=== PATIENT | female | born 1975 | race Caucasian/White ===

== ENCOUNTER 2017-02-17 17:17 | Emergency (ER) | payer BC ==
[2017-02-17] MEDS ORDERED: NS 1,000 ML IV ONE ×2 (17:34→18:59)
[2017-02-17] MEDS ORDERED: ONDANSETRON 4 MG/2 ML VIAL IVP ONE (17:34)
[2017-02-17 17:52] LABS: % IMMATURE GRANULYOCYTES 0.3 % (0.0-1.1); ABSOLUTE IMMATURE GRANULOCYTES 0.02 10^3/uL (0.00-0.10); ADD DIFF? NO; ADD MORPH? NO; ADD SCAN? NO; ATYPICAL LYMPHOCYTE FLAG 60 (0-99); FRAGMENT RBC FLAG 0 (0-99); HEMATOCRIT 42.7 % (38.0-47.0); HEMOGLOBIN 14.7 g/dL (12.6-16.3); LEFT SHIFT FLG 0 (0-99); LIPEMIA HEMOLYSIS FLAG 90 (0-99); MEAN CELL HEMOGLOBIN 31.4 pg (27.9-34.1); MEAN CELL HEMOGLOBIN CONCENTR. 34.4 g/dL (32.4-36.7); MEAN CELL VOLUME 91.2 fL (81.5-99.8); MEAN PLATELET VOLUME 8.7 fL (8.7-11.7); PLATELET CLUMPS FLAG 10 (0-99); PLATELET COUNT 399 10^3/uL (150-400); RED BLOOD CELL COUNT 4.68 10^6/uL (4.18-5.33)
[2017-02-17] MEDS ORDERED: METOCLOPRAMIDE 10 MG/2 ML VIAL IVP ONE (17:52)
[2017-02-17] MEDS ORDERED: PANTOPRAZOLE SODIUM 40 MG VIAL IVP ONE (17:52)
--- NOTE | 2017-02-17 17:52 | EDPHY ---
H & P Stated Complaint: Throwing up since 02/13/17. One episode of diarrhea Source: Patient, Family Exam Limitations: No limitations - Personal History LMP (Females 10-55): Now Current Tetanus Diphtheria and Acellular Pertussis (TDAP): Yes - Medical/Surgical History Hx Asthma: No Hx Chronic Respiratory Disease: No Hx Diabetes: No Hx Cardiac Disease: No Hx Renal Disease: No Hx Cirrhosis: No Hx Alcoholism: No Hx HIV/AIDS: No Hx Splenectomy or Spleen Trauma: No Other PMH: Right knee surgery. HTN. - Social History Smoking Status: Never smoked HPI/ROS: CHIEF COMPLAINT: Nausea vomiting HISTORY OF PRESENT ILLNESS: Patient complains of vomiting that started Monday morning. This has constant duration. Steadily worsening. Multiple episodes per day with dry heaving when she is NPO. She has had difficulty keeping any liquids or solids down. No bloody emesis. Couple episodes of diarrhea. No constipation. No fever or chills. No abdominal pain other than the cramping associated with dry heaving. No chest pain or shortness of breath. No cough or illness. No recent travel. No other known sick contacts. No other associated complaints or modifying factors. Does have a history of hypertension that she takes triamterene for. She is not taking over the past 2 days. 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 Uvula midline. No erythema or edema. Neck: Normal inspection, supple, non-tender. Trachea midline. Respiratory: Lungs are clear to auscultation Cardiovascular: Regular rate and rhythm. No murmur. Pulses intact distally. Gastrointestinal: Abdomen is soft and nontender. No tympany. No rigidity. No distention. Non-acute abdomen. Neurological: A&O, nonfocal, normal gait Skin: Warm and dry, no rash. Normal turgor. No petechiae or purpura. Extremities: Nontender, no pedal edema Psychiatric: Mood and affect normal DIFFERENTIAL DIAGNOSES: Including but not limited to viral gastroenteritis, dehydration, electrolyte disturbance, intractable vomiting, gastritis, enteritis, colitis, acute kidney injury MDM: 5:50 p.m. Four days history of vomiting. This is intolerance of liquid and solid. Vital signs are stable. Abdominal examination is benign. She is not actively vomiting at time my examination. I have ordered IV fluid, Zofran, Reglan and Benadryl. She is in no acute distress and resting comfortably at this time. 6:15 p.m. CBC and chemistry are unremarkable for any significant abnormalities. Continue with IV fluid resuscitation. 7:10 p.m. I have re-evaluated the patient. She is resting comfortably, feeling significantly better. No longer nauseated. No vomiting since arrival. Vital signs remained stable. Labs are all within normal limits. I suspect that this is a viral gastroenteritis, and that this will be self-limiting. No indication for imaging at this time. No indication for antibiotics. Discharged home with 2 forms of promethazine as she already has Zofran. She is comfortable with this plan. She will be discharged home stable condition with instructions to return here for or return of vomiting, fever or any abdominal pain. ED Precautions: Worsening pain. Fever. Bloody stools. Bloody emesis. Constipation or diarrhea. SUPERVISION: This patient was independently evaluated without direct examination by the attending physician. Case was discussed with attending physician. (Rafael Meeks) Constitutional: Initial Vital Signs Temperature (C) 36.6 C 02/17/17 17:27 Heart Rate 80 02/17/17 17:27 Respiratory Rate 16 02/17/17 17:27 Blood Pressure 125/82 H 02/17/17 17:27 O2 Sat (%) 98 02/17/17 17:27 O2 Delivery Mode Room Air Allergies/Adverse Reactions: acetaminophen [From Vicodin] Allergy (Severe, Verified 09/12/10 15:40) hydrocodone bitartrate [From Vicodin] Allergy (Severe, Verified 09/12/10 15:40) Home Medications: Medication Instructions Recorded Control Pill 09/12/10 Promethazine HCl [Phenergan 25mg 25 mg PO Q8 PRN #12 tab 02/17/17 (*)] Promethazine HCl [Phenergan] 25 mg RC Q8 PRN #12 supp.rect 02/17/17 Triamterene-Hctz 37.5-25 mg Cp 02/17/17 Medical Decision Making ED Course/Re-evaluation: I did not see this patient while she was in the emergency department. However her care was discussed with the PA while the patient was in the department. I agree with treatment plan and management (Milan Yates) - Data Points Laboratory Results: Laboratory Results 02/17/17 17:45 02/17/17 17:45 02/17/17 02/17/17 02/17/17 17:45 17:45 17:45 WBC 7.40 10^3/uL 10^3/uL (3.80-9.50) RBC 4.68 10^6/uL 10^6/uL (4.18-5.33) Hgb 14.7 g/dL g/dL (12.6-16.3) Hct 42.7 % % (38.0-47.0) MCV 91.2 fL fL (81.5-99.8) MCH 31.4 pg pg (27.9-34.1) MCHC 34.4 g/dL g/dL (32.4-36.7) RDW 12.0 % % (11.5-15.2) Plt Count 399 10^3/uL 10^3/uL (150-400) MPV 8.7 fL fL (8.7-11.7) Neut % (Auto) 44.7 % % (39.3-74.2) Lymph % (Auto) 42.6 % % (15.0-45.0) [place] % (Auto) 7.3 % % (4.5-13.0) Eos % (Auto) 4.7 % % (0.6-7.6) Baso % (Auto) 0.4 % % (0.3-1.7) Nucleat RBC Rel Count 0.0 % % (0.0-0.2) Absolute Neuts (auto) 3.31 10^3/uL 10^3/uL (1.70-6.50) Absolute Lymphs (auto) 3.15 10^3/uL H 10^3/uL (1.00-3.00) Absolute Monos (auto) 0.54 10^3/uL 10^3/uL (0.30-0.80) Absolute Eos (auto) 0.35 10^3/uL 10^3/uL (0.03-0.40) Absolute Basos (auto) 0.03 10^3/uL 10^3/uL (0.02-0.10) Absolute Nucleated RBC 0.00 10^3/uL 10^3/uL (0-0.01) Immature Gran % 0.3 % % (0.0-1.1) Immature Gran # 0.02 10^3/uL 10^3/uL (0.00-0.10) Sodium 135 mEq/L mEq/L (134-144) Potassium 3.4 mEq/L L mEq/L (3.5-5.2) Chloride 101 mEq/L mEq/L (97-110) Carbon Dioxide 25 mEq/l mEq/l (22-31) Anion Gap 9 mEq/L mEq/L (8-16) BUN 10 mg/dL mg/dL (7-23) Creatinine 0.9 mg/dL mg/dL (0.6-1.0) Estimated GFR > 60 Glucose 88 mg/dL mg/dL (70-100) Calcium 8.4 mg/dL L mg/dL (8.5-10.4) Total Bilirubin 0.6 mg/dL mg/dL (0.1-1.4) Conjugated Bilirubin 0.4 mg/dL mg/dL (0.0-0.5) Unconjugated Bilirubin 0.2 mg/dL mg/dL (0.0-1.1) AST 40 IU/L IU/L (14-46) ALT 50 IU/L IU/L (9-52) Alkaline Phosphatase 42 IU/L IU/L (38-126) Total Protein 6.3 g/dL g/dL (6.3-8.2) Albumin 3.9 g/dL g/dL (3.5-5.0) Lipase 154.0 IU/L IU/L (23-300) Beta HCG, Qual NEGATIVE Urine Color Urine Appearance Urine pH Ur Specific [place] Urine Protein Urine Ketones Urine Blood Urine Nitrate Urine Bilirubin Urine Urobilinogen Ur Leukocyte Esterase Urine RBC Urine WBC Ur Epithelial Cells Urine Glucose 02/17/17 17:34 WBC RBC Hgb Hct MCV MCH MCHC RDW Plt Count MPV Neut % (Auto) Lymph % (Auto) [place] % (Auto) Eos % (Auto) Baso % (Auto) Nucleat RBC Rel Count Absolute Neuts (auto) Absolute Lymphs (auto) Absolute Monos (auto) Absolute Eos (auto) Absolute Basos (auto) Absolute Nucleated RBC Immature Gran % Immature Gran # Sodium Potassium Chloride Carbon Dioxide Anion Gap BUN Creatinine Estimated GFR Glucose Calcium Total Bilirubin Conjugated Bilirubin Unconjugated Bilirubin AST ALT Alkaline Phosphatase Total Protein Albumin Lipase Beta HCG, Qual Urine Color PALE YELLOW Urine Appearance CLEAR Urine pH 7.0 (5.0-7.5) Ur Specific [place] 1.005 (1.002-1.030) Urine Protein NEGATIVE (NEGATIVE) Urine Ketones NEGATIVE (NEGATIVE) Urine Blood NEGATIVE (NEGATIVE) Urine Nitrate NEGATIVE (NEGATIVE) Urine Bilirubin NEGATIVE (NEGATIVE) Urine Urobilinogen NEGATIVE EU EU (0.2-1.0) Ur Leukocyte Esterase NEGATIVE (NEGATIVE) Urine RBC 1-3 /hpf /hpf (0-3) Urine WBC 1-3 /hpf /hpf (0-3) Ur Epithelial Cells NONE SEEN /lpf /lpf (NONE-1+) Urine Glucose NEGATIVE (NEGATIVE) Medications Given: Discontinued Medications Diphenhydramine HCl (Benadryl Injection) 25 mg IVP EDNOW ONE Stop: 02/17/17 17:53 Last Admin: 02/17/17 18:05 Dose: 25 mg Sodium Chloride (Ns) 1,000 mls @ 0 mls/hr IV ONCE ONE; Wide Open PRN Reason: Protocol Stop: 02/17/17 17:35 Last Admin: 02/17/17 17:50 Dose: 1,000 mls Sodium Chloride (Ns) 1,000 mls @ 0 mls/hr IV ONCE ONE; Wide Open PRN Reason: Protocol Stop: 02/17/17 19:00 Last Admin: 02/17/17 19:15 Dose: 1,000 mls Metoclopramide HCl (Reglan Injection) 10 mg IVP EDNOW ONE Stop: 02/17/17 17:53 Last Admin: 02/17/17 18:05 Dose: 10 mg Ondansetron HCl (Zofran) 4 mg IVP EDNOW ONE Stop: 02/17/17 17:35 Last Admin: 02/17/17 17:50 Dose: 4 mg Pantoprazole Sodium (Protonix) 40 mg IVP EDNOW ONE Stop: 02/17/17 17:53 Last Admin: 02/17/17 18:08 Dose: 40 mg Promethazine HCl (Phenergan) 12.5 mg IVP EDNOW ONE Stop: 02/17/17 19:31 Last Admin: 02/17/17 19:30 Dose: 12.5 mg Promethazine HCl (Phenergan 25 Mg Prepack #4) 1 btl TAKEHOME EDNOW ONE Stop: 02/17/17 19:46 Last Admin: 02/17/17 20:08 Dose: 1 btl Departure - Departure Disposition: Home, Routine, Self-Care Clinical Impression: Nausea & vomiting Qualifiers: Vomiting type: unspecified Vomiting Intractability: non-intractable Qualified Code(s): R11.2 - Nausea with vomiting, unspecified Condition: Good Instructions: Promethazine (By mouth), Acute Nausea and Vomiting (ED) Additional Instructions: 1. Zofran ODT as prescribed as needed 2. Promethazine p.o. as prescribed as needed or OK are as prescribed as needed 3. Follow up with primary care physician or return to the emergency department for worsening symptoms as discussed Referrals: Ayaz Cortes MD [Primary Care Provider] - As per Instructions Prescriptions: Promethazine HCl [Phenergan] 25 mg RC Q8 PRN #12 supp.rect PRN Reason: Nausea/Vomiting, Can'T Take Po Promethazine HCl [Phenergan 25mg (*)] 25 mg PO Q8 PRN #12 tab PRN Reason: Nausea/Vomiting, Use 1st
[2017-02-17 18:14] LABS: ALANINE AMINOTRANSFERASE 50 IU/L (9-52); ALBUMIN 3.9 g/dL (3.5-5.0); ALKALINE PHOSPHATASE 42 IU/L (38-126); ANION GAP 9 mEq/L (8-16); ASPARTATE AMINOTRANSFERASE 40 IU/L (14-46); BILIRUBIN,TOTAL 0.6 mg/dL (0.1-1.4); BILIRUBIN-CONJUGATED 0.4 mg/dL (0.0-0.5); BILIRUBIN-UNCONJUGATED 0.2 mg/dL (0.0-1.1); CALCIUM 8.4 mg/dL (8.5-10.4); CARBON DIOXIDE 25 mEq/l (22-31); CHLORIDE 101 mEq/L (97-110); CREATININE 0.9 mg/dL (0.6-1.0); GLOMERULAR FILTRATION RATE > 60; GLUCOSE 88 mg/dL (70-100); POTASSIUM 3.4 mEq/L (3.5-5.2); SODIUM 135 mEq/L (134-144); TOTAL PROTEIN 6.3 g/dL (6.3-8.2)
[2017-02-17 19:06] LABS: COLOR PALE YELLOW; LEUKOCYTE ESTERASE,URINE NEGATIVE (NEGATIVE); NITRITE,URINE NEGATIVE (NEGATIVE)
[2017-02-17] MEDS ORDERED: PROMETHAZINE HCL 25 MG/ML INJ ONE (19:25)
[2017-02-17] MEDS ORDERED: PROMETHAZINE HCL 25 MG/ML INJ IVP ONE (19:30)
[2017-02-17] MEDS ORDERED: PROMETHAZINE 25 MG PREPACK #4 BTL TAKEHOME ONE (19:45)
[2017-02-17 20:10] VITALS: BP 108/77; PULSE 78; RESP 20; TEMP 98.1; O2SAT 97
== END 2017-02-17 20:12 | disposition home or self-care (01) ==
DX: R11.2 Nausea with vomiting, unspecified (principal); I10 Essential (primary) hypertension
CPT/HCPCS: 96374; J1200; J2405; J2550; J2765

== ENCOUNTER → 2017-10-25 | Outpatient (CLI) | payer BC | LOC: BMCIMAGING 11:02 | PROVIDERS: ATTEND Internal Medicine Rheumatology | DX: M19.041 Primary osteoarthritis, right hand (principal); M19.042 Primary osteoarthritis, left hand; M53.3 Sacrococcygeal disorders, not elsewhere classified ==